=== PATIENT | female | born 1980 | race Caucasian/White ===

== ENCOUNTER → 2017-07-23 | Outpatient (CLI) | payer OTHER | END | disposition home or self-care (01) | LOC: CVU 15:58 | PROVIDERS: ATTEND Internal Medicine Cardiovascular Disease | DX: I34.0 Nonrheumatic mitral (valve) insufficiency (principal); I51.7 Cardiomegaly; I42.9 Cardiomyopathy, unspecified; I10 Essential (primary) hypertension; E11.9 Type 2 diabetes mellitus without complications; Z87.891 Personal history of nicotine dependence | CPT/HCPCS: C8929 ==

== ENCOUNTER 2017-12-05 09:24 | Observation (INO) | payer OTHER ==
[2017-12-04 15:12] VITALS: BP 121/55
[2017-12-04 15:46] LABS: BASOPHILS # (AUTO) 0.05 x10^3/uL (0-0.1); BASOPHILS % (AUTO) 0 % (0-1); EOSINOPHILS % (AUTO) 2 % (1-7); LYMPHOCYTES # (AUTO) 1.97 x10^3/uL (1-3.4); LYMPHOCYTES % (AUTO) 16 % (22-44); MD NO; MEAN CORPUSCULAR HEMOGLOBIN 29.9 pg (27.0-34.8); MEAN CORPUSCULAR HGB CONC 33.6 g/dL (32.4-35.8); MEAN PLATELET VOLUME 9.2 fL (7.4-10.4); MONOCYTES # (AUTO) 0.59 x10^3/uL (0.2-0.8); MONOCYTES % (AUTO) 5 % (2-9); NEUTROPHILS # (AUTO) 9.65 x10^3/uL (1.8-6.8); NEUTROPHILS % (AUTO) 77 % (42-75); PLATELET COUNT 233 x10^3/uL (130-400); RED BLOOD COUNT 4.85 x10^6/uL (3.82-5.3); RED CELL DISTRIBUTION WIDTH 12.9 % (9.6-15.2)
[2017-12-04 15:55] LABS: ALBUMIN 3.2 g/dL (3.4-5.0); ANION GAP 10 mmol/L (5-15); CALCIUM 9.3 mg/dL (8.5-10.1); CHLORIDE 102 mmol/L (98-107)
[2017-12-04 16:00] LABS: ALANINE AMINOTRANSFERASE 13 U/L (12-78); ALKALINE PHOSPHATASE 86 U/L (45-117); BILIRUBIN,TOTAL 0.8 mg/dL (0.2-1.0); CREATININE 0.64 mg/dL (0.55-1.02); TOTAL PROTEIN 7.7 g/dL (6.4-8.2)
[~2017-12-05] VITALS: Ht 162.6 cm; Wt 137.0 kg
[~2017-12-05 09:24] MED LIST: ASCO100019 PO; CARV-39 PO; CHOL500045 PO; FURO20TA3 PO; LISI-170 PO; METF500T4 PO; POTA10TA5 PO; SPIR25TA3 PO
[2017-12-05] MEDS: SODIUM CHLORIDE 0.9% 1,000 ML IV SCH ×2 (09:49→17:49)
[2017-12-05] MEDS ORDERED: VANCOMYCIN PMX 1GM/200ML 200 ML IVPB SCH ×2 (10:00→13:00)
[2017-12-05] MEDS ORDERED: FENTANYL PF 100 MCG/2ML ONE ×2 (11:23→12:55)
[2017-12-05] MEDS ORDERED: MIDAZOLAM 1 MG/ML, 2ML ONE (11:23)
[2017-12-05] MEDS ORDERED: CEFAZOLIN 1,000 MG ONE (11:31)
[2017-12-05] MEDS ORDERED: CEFAZOLIN PMX 1GM/50ML 0 ML ONE (11:31)
[2017-12-05] MEDS ORDERED: LIDOCAINE 2%, 20ML ONE (11:32)
[2017-12-05] MEDS ORDERED: EPHEDRINE 50 MG/ML, 1ML ONE (11:35)
[2017-12-05] MEDS ORDERED: PROPOFOL 10 MG/ML, 20ML ONE (11:35)
[2017-12-05] MEDS ORDERED: SUCCINYLCHOLINE 20 MG/ML, 10ML ONE (11:35)
[2017-12-05] MEDS ORDERED: DEXAMETHASONE 4 MG/ML, 1ML ONE (11:35)
[2017-12-05] MEDS ORDERED: FENTANYL PF 250 MCG/5ML ONE (11:49)
[2017-12-05] MEDS ORDERED: SUGAMMADEX 200 MG/2 ML IVPush ONE ×2 (11:57→13:00)
[2017-12-05] MEDS ORDERED: ONDANSETRON 2MG/ML, 2ML IV PRN (12:30)
[2017-12-05] MEDS ORDERED: OXYcodone 5 MG/5 ML ORAL.SOL UDC ONE (12:55)
[2017-12-05] MEDS ORDERED: ACETAMINOPHEN 650 MG/20.3 ML UDC ONE (12:55)
[2017-12-05] MEDS ORDERED: hydrALAzine 20 MG/ML, 1ML IV PRN (13:00)
[2017-12-05] MEDS ORDERED: FENTANYL PF 100 MCG/2ML IV PRN (13:00)
[2017-12-05] MEDS ORDERED: OXYcodone 5 MG/5 ML ORAL.SOL UDC PO PRN (13:00)
[2017-12-05] MEDS ORDERED: ONDANSETRON 2MG/ML, 2ML IVPush PRN (13:00)
[2017-12-05] MEDS ORDERED: HYDROmorphone 1 MG/ML, 1ML IV PRN (13:00)
[2017-12-05] MEDS ORDERED: LABETALOL 5MG/ML, 20ML IV PRN (13:00)
[2017-12-05] MEDS ORDERED: ACETAMINOPHEN 325 MG TABLET PO PRN (13:00)
[2017-12-05] MEDS ORDERED: MEPERIDINE/PF 25MG/0.5ML IVPush PRN (13:00)
[2017-12-05 14:15] VITALS: BP 127/92
[2017-12-05 18:36] VITALS: BP 121/75
[2017-12-05] MEDS: ACETAMINOPHEN 325 MG TABLET PO PRN ×2 (18:54→23:37)
[2017-12-05] MEDS: SODIUM CHLORIDE FLUSH 10ML SYR IVF SCH (23:14)
[2017-12-05] MEDS ORDERED: HYDROmorphone 2 MG/ML, 1ML ONE (23:30)
[2017-12-06] MEDS: SODIUM CHLORIDE 0.9% 1,000 ML IV SCH ×2 (01:49→07:15)
[2017-12-06 04:09] VITALS: BP 124/65
[2017-12-06] MEDS: ACETAMINOPHEN 325 MG TABLET PO PRN (05:15)
[2017-12-06 07:12] VITALS: BP 119/65
[2017-12-06] MEDS: SODIUM CHLORIDE FLUSH 10ML SYR IVF SCH (07:15)
== END 2017-12-06 11:38 | disposition home or self-care (01) ==
LOC: CACL 09:24 → EDSTATUS 11:00 → ORIP 12:29 → 5SO 14:13
PROVIDERS: ADMIT Internal Medicine Cardiovascular Disease; ATTEND Internal Medicine Cardiovascular Disease
DX: I42.9 Cardiomyopathy, unspecified (principal); I50.22 Chronic systolic (congestive) heart failure
CPT/HCPCS: 33249; 36415; 71045; 71046; 80053; 84702; 85025; 96365; C1722; C1892; C1895; G0378; J0330; J0690; J1100; J2250; J2704; J3010; J3370; J3490

== ENCOUNTER 2018-02-03 00:46 | Outpatient (CLI) | payer OTHER | END 2018-02-03 01:00 | disposition home or self-care (01) | LOC: LDOP 00:46 | PROVIDERS: ATTEND Obstetrics & Gynecology | DX: Z02.9 Encounter for administrative examinations, unspecified (principal) ==

== ENCOUNTER 2018-02-03 01:04 | Emergency (ER) | payer OTHER ==
[~2018-02-03] VITALS: Ht 162.6 cm; Wt 134.1 kg
[2018-02-03] MEDS ORDERED: ONDANSETRON ODT 4 MG ONE (01:35)
[2018-02-03] MEDS ORDERED: OXYcodone/APAP 7.5/325MG TABLET ONE (01:36)
[2018-02-03 01:47] LABS: BASOPHILS # (AUTO) 0.13 x10^3/uL (0-0.1); BASOPHILS % (AUTO) 1 % (0-1); EOSINOPHILS # (AUTO) 0.23 x10^3/uL (0-0.4); EOSINOPHILS % (AUTO) 2 % (1-7); LYMPHOCYTES # (AUTO) 1.35 x10^3/uL (1-3.4); LYMPHOCYTES % (AUTO) 10 % (22-44); MD NO; MEAN CORPUSCULAR HEMOGLOBIN 28.7 pg (27.0-34.8); MEAN PLATELET VOLUME 9.1 fL (7.4-10.4); MONOCYTES # (AUTO) 0.48 x10^3/uL (0.2-0.8); MONOCYTES % (AUTO) 3 % (2-9); NEUTROPHILS # (AUTO) 11.97 x10^3/uL (1.8-6.8); NEUTROPHILS % (AUTO) 85 % (42-75); PLATELET COUNT 234 x10^3/uL (130-400); RED BLOOD COUNT 5.11 x10^6/uL (3.82-5.3); RED CELL DISTRIBUTION WIDTH 13.9 % (9.6-15.2)
[2018-02-03 01:50] LABS: HCG UR SG 1.028 (1.003-1.030); MICROSCOPIC INDICATED
[2018-02-03 01:58] LABS: CULTURE INDICATED? NO
[2018-02-03 01:58] LABS: ALANINE AMINOTRANSFERASE 17 U/L (12-78); ALBUMIN 3.1 g/dL (3.4-5.0); ANION GAP 12 mmol/L (5-15); CHLORIDE 104 mmol/L (98-107); CREATININE 0.68 mg/dL (0.55-1.02)
[2018-02-03] MEDS ORDERED: ONDANSETRON ODT 4 MG PO ONE (02:00)
[2018-02-03] MEDS ORDERED: OXYcodone/APAP 7.5/325MG TABLET PO ONE (02:00)
[2018-02-03 02:01] LABS: ALKALINE PHOSPHATASE 96 U/L (45-117); BILIRUBIN,TOTAL 0.5 mg/dL (0.2-1.0); TOTAL PROTEIN 7.5 g/dL (6.4-8.2)
[2018-02-03] MEDS ORDERED: KETOROLAC 30 MG/1 ML ONE (02:53)
[2018-02-03] MEDS ORDERED: KETOROLAC 30 MG/1 ML IM ONE (03:00)
[2018-02-03 04:08] VITALS: BP 128/58
== END 2018-02-03 04:55 | disposition home or self-care (01) ==
LOC: ED 02:41
DX: O03.9 Complete or unspecified spontaneous abortion without complication (principal); Z87.891 Personal history of nicotine dependence
CPT/HCPCS: 36415; 80053; 81001; 81025; 83690; 84702; 85025; 86901; 88305; 96372; 99284; J1885; Q0162

== ENCOUNTER → 2018-05-18 | Outpatient (CLI) | payer OTHER ==
[~2018-05-18] MED LIST changes: -METF500T4 PO; +METF500T5 PO; -SPIR25TA3 PO; +SPIR25TA5 PO
== END | disposition home or self-care (01) ==
LOC: CFH 15:29
PROVIDERS: ATTEND Physician Assistant
DX: I34.0 Nonrheumatic mitral (valve) insufficiency (principal); I42.9 Cardiomyopathy, unspecified; I10 Essential (primary) hypertension; E11.9 Type 2 diabetes mellitus without complications; Z87.891 Personal history of nicotine dependence; Z95.810 Presence of automatic (implantable) cardiac defibrillator
CPT/HCPCS: 93306

== ENCOUNTER → 2018-12-23 | Outpatient (CLI) | payer OTHER ==
[~2018-12-23] MED LIST changes: +METF500T17 PO; -METF500T5 PO
== END | disposition home or self-care (01) ==
LOC: CVU 15:18
PROVIDERS: ATTEND Physician Assistant
DX: I07.1 Rheumatic tricuspid insufficiency (principal); I42.9 Cardiomyopathy, unspecified; E11.9 Type 2 diabetes mellitus without complications; Z87.891 Personal history of nicotine dependence; Z95.810 Presence of automatic (implantable) cardiac defibrillator
CPT/HCPCS: C8929; Q9957

== ENCOUNTER 2020-01-03 22:57 | Emergency (ER) | payer OTHER ==
[~2020-01-03] VITALS: Ht 162.6 cm; Wt 111.7 kg
[2020-01-03] MEDS ORDERED: SACU1TAB PO (23:23)
--- NOTE | 2020-01-03 23:25 | NUR ---
THIS IS A 39 YO FEMALE COMING IN WITH C/O "CHEST TIGHTNESS GOING TO MY BACK AND SHORTNESS OF BREATH", PATIENT WAS DX WITH STREP THROAT LAST WEEK AND HAS HAD N/V/D SINCE THEN, LESSENING THIS WEEK. CHEST PAIN AND SOB STARTED YESTERDAY AND WORSENED TODAY. PATIENT SPEAKING IN FULL SENTENCES, RESPIRATIONS EVEN AND UNLABORED. LUNG SOUNDS CLEAR THROUGHOUT, BUT MILDLY DIMINISHED. ALL MONITORING IN PLACE, VSS, NAD AT THIS TIME. CALL LIGHT IN REACH.
[2020-01-03] MEDS ORDERED: ASPIRIN 81 MG TABLET CHEW PO ONE (23:30)
[2020-01-03] MEDS ORDERED: ASPIRIN 81 MG TABLET CHEW ONE (23:40)
--- NOTE | 2020-01-03 23:50 | NUR ---
PATIENT MEDICATED PER EMAR, TOLERATED WELL. [employer]IONAL V[employer] TO ROOM
[2020-01-04] LABS: RAPID INFLUENZA A Negative (Negative); RAPID INFLUENZA B Negative (Negative)
[2020-01-04 00:01] LABS: BASOPHILS # (AUTO) 0.05 x10^3/uL (0-0.1); BASOPHILS % (AUTO) 1 % (0-1); EOSINOPHILS # (AUTO) 0.19 x10^3/uL (0-0.4); EOSINOPHILS % (AUTO) 2 % (1-7); LYMPHOCYTES # (AUTO) 2.88 x10^3/uL (1-3.4); LYMPHOCYTES % (AUTO) 27 % (22-44); MD NO; MEAN CORPUSCULAR HEMOGLOBIN 27.3 pg (27.0-34.8); MEAN CORPUSCULAR HGB CONC 32.8 g/dL (32.4-35.8); MEAN CORPUSCULAR VOLUME 83.1 fL (80-100); MEAN PLATELET VOLUME 10.1 fL (7.4-10.4); MONOCYTES # (AUTO) 0.54 x10^3/uL (0.2-0.8); MONOCYTES % (AUTO) 5 % (2-9); NEUTROPHILS % (AUTO) 66 % (42-75); PLATELET COUNT 248 x10^3/uL (130-400); RED BLOOD COUNT 5.61 x10^6/uL (3.82-5.3); RED CELL DISTRIBUTION WIDTH 14.4 % (9.6-15.2)
[2020-01-04 00:10] LABS: ALBUMIN 3.4 g/dL (3.4-5.0); ANION GAP 7 mmol/L (5-15); CHLORIDE 102 mmol/L (98-107)
[2020-01-04 00:16] LABS: ALANINE AMINOTRANSFERASE 25 U/L (12-78); ALKALINE PHOSPHATASE 92 U/L (45-117); BILIRUBIN,TOTAL 0.5 mg/dL (0.2-1.0); CREATININE 0.68 mg/dL (0.55-1.02); TOTAL PROTEIN 7.3 g/dL (6.4-8.2); TROPONIN I < 0.015 ng/mL (0.000-0.045)
--- NOTE | 2020-01-04 00:38 | NUR ---
PATIENT STATES NO IMPROVEMENT IN PAIN AFTER ASPIRIN, ERP AND PA NOTIFIED
[2020-01-04 00:40] VITALS: BP 136/86
--- NOTE | 2020-01-04 00:55 | NUR ---
ERP TO ROOM
--- NOTE | 2020-01-04 01:03 | NUR ---
ERP TO SWAB PATIENT FOR COVID19, PATIENT TO BE DISCHARGED
--- NOTE | 2020-01-04 01:04 | NUR ---
Patient given discharge instructions and they have confirmed that they understand the instructions. Patient ambulatory with steady gait.
== END 2020-01-04 01:17 | disposition home or self-care (01) ==
LOC: ED 01-04 00:30
DX: B97.29 Other coronavirus as the cause of diseases classified elsewhere (principal); R07.89 Other chest pain; R06.00 Dyspnea, unspecified; E11.9 Type 2 diabetes mellitus without complications
CPT/HCPCS: 36415; 71045; 80053; 83880; 84484; 85025; 87400; 93005; 99285

== ENCOUNTER 2020-08-24 08:37 | Emergency (ER) | payer OTHER ==
[~2020-08-24] VITALS: Ht 160 cm; Wt 112.7 kg
[~2020-08-24 08:37] MED LIST changes: +SACU1TAB PO
[2020-08-24 09:55] LABS: BASOPHILS % (AUTO) 1 % (0-1); EOSINOPHILS % (AUTO) 0 % (1-7); LYMPHOCYTES % (AUTO) 15 % (22-44); MEAN CORPUSCULAR HGB CONC 33.3 g/dL (32.4-35.8); MEAN PLATELET VOLUME 9.5 fL (7.4-10.4); MONOCYTES % (AUTO) 6 % (2-9); NEUTROPHILS % (AUTO) 78 % (42-75); PLATELET COUNT 189 x10^3/uL (130-400); RED BLOOD COUNT 5.56 x10^6/uL (3.82-5.3); RED CELL DISTRIBUTION WIDTH 14.3 % (9.6-15.2)
[2020-08-24 10:03] LABS: MD NO
[2020-08-24 10:12] LABS: D-DIMER (DIC) 0.61 ug/mlFEU (0.00-0.52); PROTIME 10.6 Seconds (9.6-11.5)
[2020-08-24 10:22] LABS: ANION GAP 8 mmol/L (5-15); CALCIUM 8.5 mg/dL (8.5-10.1); CHLORIDE 97 mmol/L (98-107)
[2020-08-24 10:23] LABS: ALANINE AMINOTRANSFERASE 21 U/L (12-78); ALKALINE PHOSPHATASE 116 U/L (45-117); BILIRUBIN,TOTAL 0.8 mg/dL (0.2-1.0); CREATININE 0.71 mg/dL (0.55-1.02)
[2020-08-24 10:24] LABS: ALBUMIN 3.1 g/dL (3.4-5.0); C-REACTIVE PROTEIN, QUANT > 19.00 mg/dL (0.02-0.49); TOTAL PROTEIN 8.2 g/dL (6.4-8.2)
--- NOTE | 2020-08-24 10:30 | NUR ---
assumed care of pt. pt here c/o COVID+ sx and Dr Cruz has been to [facility] for evaluation. pt has refused admission and pt is currently on RA trial lab has been to bedside for BC x2 no family at bedside
--- NOTE | 2020-08-24 10:55 | NUR ---
pt to have antibody infusion per Dr. Cruz. education has been provided to pt by and pt agress to recieve infusion. pt here for cough and SOB as well as COVID sx. per MD, pt has refused admission at this time. pt is A&O x4 and is hypoxic on RA. pt education given regarding the risks of D/C to home in a hypoxic state. pt verbalized understanding pt denies CP, states that she has had some body aches and SOB. no family at bedside pt updated on POC
[2020-08-24] MEDS ORDERED: BAMLANIVIMAB 700 MG in SODIUM CHLORIDE 0.9% 180 ML IV ONE (11:00)
[2020-08-24] MEDS ORDERED: FILTER 0.22 MICRON IV PRN (11:00)
--- NOTE | 2020-08-24 12:00 | NUR ---
infusion initiated per order. pt resting in position of comfort with lights dimmed per request. pt education handout given on antibody infusion.
--- NOTE | 2020-08-24 12:10 | NUR ---
report to Jaime RICO
--- NOTE | 2020-08-24 12:10 | NUR ---
REPORT RECEIVED FROM TRISHA ZAIDI FOR TRANSFER OF PATIENT CARE.
--- NOTE | 2020-08-24 12:29 | NUR ---
LATE ENTRY, NOTE WRITTEN ON WRONG PATIENT. PATIENT RESTING IN GURNEY, CONNECTED TO VITALS MACHINE, NO SIGNS OF ACUTE DISTRESS, INFUSION INCREASED FROM 50mLS/HR TO 100 mLS/HR. CALL LIGHT WITHIN REACH, PATIENT EDUCATED TO CALL IF SHE IS EXPERIENCING SIGNS OF ALLERGIC REACTION.
--- NOTE | 2020-08-24 13:01 | NUR ---
PATIENT SITTING IN CHAIR NEXT TO GURNEY, NO SIGNS OF ACUTE DISTRESS, CONNECTED TO VITALS MACHINE, CALL LIGHT WITHIN REACH. BAMLANIVIMAB INFUSION INCREASED FROM 100 mLS/HR TO 150 mLS/HR, PATIENT TOLERATING WELL.
--- NOTE | 2020-08-24 13:28 | NUR ---
INFUSION OF BAMLANIVIMAB INCREASED FROM 150 mLS/HR TO 200 mLS/HR, PATIENT TOLERATING INFUSION WELL, VITAL SIGNS STABLE.
--- NOTE | 2020-08-24 13:49 | NUR ---
BAMLANIVIMAB INFUSION DONE, VITAL SIGNS WITHIN NORMAL LIMITS, PATIENT AMBULATED BACK TO [facility] FROM CHAIR, CALL LIGHT WITHIN REACH.
[2020-08-24] MEDS ORDERED: ACETAMINOPHEN 325 MG TABLET ONE (14:44)
[2020-08-24] MEDS ORDERED: ACETAMINOPHEN 500 MG TABLET ONE (14:48)
--- NOTE | 2020-08-24 14:49 | NUR ---
ERMD AT BEDSIDE TO DISCUSS POC.
[2020-08-24 14:51] VITALS: BP 138/73
[2020-08-24] MEDS ORDERED: ACETAMINOPHEN 500 MG TABLET PO ONE (15:00)
--- NOTE | 2020-08-24 15:07 | NUR ---
Patient given discharge instructions and prescription and they have confirmed that they understand the instructions. Patient in stable condition wheeled to private vehicle.
== END 2020-08-24 15:08 | disposition home or self-care (01) ==
LOC: ED 10:25
DX: U07.1 COVID-19 (principal); J12.9 Viral pneumonia, unspecified; R06.02 Shortness of breath; R19.7 Diarrhea, unspecified; R00.0 Tachycardia, unspecified; R11.0 Nausea; E11.9 Type 2 diabetes mellitus without complications
CPT/HCPCS: 36415; 71045; 80053; 82728; 83605; 83615; 84145; 84703; 85025; 85049; 85379; 85384; 85610; 85730; 86140; 87040; 93005; 99285; J7050; M0239; Q0239; 96365; 96366

== ENCOUNTER 2021-01-31 15:30 | Outpatient (CLI) | payer OTHER | END 2021-01-31 23:59 | disposition home or self-care (01) | LOC: CVU 15:30 | PROVIDERS: ATTEND Internal Medicine Cardiovascular Disease | DX: I36.1 Nonrheumatic tricuspid (valve) insufficiency (principal); I42.9 Cardiomyopathy, unspecified; I47.1 Supraventricular tachycardia; E11.9 Type 2 diabetes mellitus without complications | CPT/HCPCS: C8929; Q9957 ==